=== PATIENT | female | born 1980 | race African-American/Black ===

== ENCOUNTER 2016-11-23 15:33 | Emergency (ER) | payer OTHER ==
[~2016-11-23] VITALS: Ht 162.6 cm; Wt 118.0 kg
[2016-11-23 15:39] VITALS: Ht 162.6 cm; Wt 118.0 kg
[2016-11-23] MEDS ORDERED: KETOROLAC 30 MG INJ IV STA (18:21)
[2016-11-23] MEDS ORDERED: SOD CHLORIDE 0.9% 1,000 ML IV ONE (18:30)
[2016-11-23] MEDS ORDERED: MECLIZINE 12.5 MG TAB PO ONE (18:30)
[2016-11-23 19:10] LABS: ADD UMIC NO; UR ASCORBIC ACID NEGATIVE (NEGATIVE); UR BILIRUBIN (Dip) NEGATIVE (NEGATIVE); UR BLOOD (Dip) NEGATIVE (NEGATIVE); UR CLARITY CLEAR (CLEAR); UR COLOR YELLOW (YELLOW); UR GLUCOSE (Dip) NEGATIVE (NEGATIVE); UR KETONES (Dip) NEGATIVE (NEGATIVE); UR LEUKOCYTE ESTERASE (Dip) NEGATIVE Leu/ul (NEGATIVE); UR NITRITE (Dip) NEGATIVE (NEGATIVE); UR SPECIFIC GRAVITY (Dip) 1.019 (1.003-1.030); UR TOTAL PROTEIN (Dip) NEGATIVE (NEGATIVE); UR UROBILINOGEN (Dip) NEGATIVE (NEGATIVE)
[2016-11-23 19:13] LABS: BASOPHIL # 0.1 10^3/ul (0.0-0.1); BASOPHILS % 0.4 % (0.0-2.0); EOSINOPHILS # 0.1 10^3/ul (0.0-0.5); EOSINOPHILS % 0.7 % (0.0-7.0); HEMATOCRIT 41.2 % (37.0-47.0); LYMPHOCYTES # 3.4 10^3/ul (0.8-2.9); LYMPHOCYTES % 27.8 % (15.0-51.0); MEAN CORPUSCULAR HEMOGLOBIN 30.4 pg (29.0-33.0); MEAN CORPUSCULAR VOLUME 89.6 fl (82.0-101.0); MEAN PLATELET VOLUME 10.1 fl (7.4-10.4); MONOCYTE # 0.9 10^3/ul (0.3-0.9); MONOCYTES % 7.1 % (0.0-11.0); NEUTROPHILS % 63.7 % (39.0-77.0); PLATELET COUNT 286 10^3/UL (140-415); RED CELL DISTRIBUTION WIDTH 13.3 % (11.5-14.5); WHITE BLOOD COUNT 12.2 10^3/ul (4.8-10.8)
[2016-11-23 19:37] LABS: ALBUMIN 3.9 g/dl (3.3-4.9); ALBUMIN/GLOBULIN RATIO 0.97; BILIRUBIN,INDIRECT 0.2 mg/dl (0-1.1); BILIRUBIN,TOTAL 0.2 mg/dl (0.2-1.3); CALCIUM 9.2 mg/dl (8.4-10.2); CREATININE 0.79 mg/dl (0.44-1.00); POTASSIUM 3.7 mmol/L (3.5-5.1); TOTAL PROTEIN 7.9 g/dl (6.1-8.1)
[2016-11-23] MEDS ORDERED: IBUP-1542 PO (19:40)
[2016-11-23] MEDS ORDERED: MECL12.574 PO (19:40)
--- NOTE | 2016-11-23 19:49 | ERD ---
ER Documentation Chief Complaint Date/Time DATE: 11/23/16 TIME: 19:45 Chief Complaint HEADACHE , DIZZINESS X 2 DAYS , NO NEURO DEFICITS HPI This is a 36-year-old female that presents to the ER for a headache that is located on the back of her head is throbbing in quality it has been constant. Patient has not taken anything for her headache. Patient denies any head trauma. Patient also complaining of a spinning sensation which is worse whenever she moves her head. Patient's symptoms have been going on for the last 35 hours. Patient denies any dental pain she denies any recent cough or cold symptoms. She does admit to some nausea however denies vomiting. Patient denies any vision loss or vision changes. She denies any upper or lower extremity weaknesses. ROS 12 point review of systems was done, all negative except per HPI. Medications Home Meds Active Scripts Meclizine Hcl* (Antivert*) 12.5 Mg Tab, 12.5 MG PO Q6H Y for DIZZINESS, #20 TAB Prov:RENATA SHRESTHA 11/23/16 Ibuprofen* (Motrin*) 600 Mg Tab, 600 MG PO Q6, #30 TAB Prov:RENATA SHRESTHA 11/23/16 PMhx/Soc History of Surgery: Yes (RIGHT ACL SX AND REPAIR X 3. ) Anesthesia Reaction: No Hx Neurological Disorder: No Hx Respiratory Disorders: No Hx Cardiac Disorders: No Hx Psychiatric Problems: No Hx Miscellaneous Medical Probl: No Hx Alcohol Use: Yes (RARELY) Hx Substance Use: No Hx Tobacco Use: No Smoking Status: Never smoker Physical Exam Vitals Vital Signs Date Time Temp Pulse Resp B/P Pulse Ox O2 Delivery O2 Flow Rate FiO2 11/23/16 18:54 79 18 123/67 100 Room Air 73 124/81 75 129/84 11/23/16 15:39 98.4 80 18 132/89 98 Physical Exam GENERAL: The patient is well developed and appropriate for usual state of health , in no apparent distress. HEENT: Atraumatic. Conjunctivae are pink. Pupils equal, round, and reactive to light. Extraocular muscles are grossly intact. No nystagmus. Bilateral tympanic membranes are clear with no evidence of erythema, bulging or perforation. NECK: C-spine is soft and supple. There is no cervical lymphadenopathy. CHEST: Clear to auscultation bilaterally. There are no rales, wheezes or rhonchi. HEART: Regular rate and rhythm. No murmurs, clicks, rubs or gallops. EXTREMITIES: Equal pulses bilaterally. There is no peripheral clubbing, cyanosis or edema. No focal swelling or erythema. Full range of motion. Grossly neurovascularly intact. NEURO: Alert and oriented. Cranial nerves II through XII are intact. Motor strength in all 4 extremities with 5/5 strength. Sensation grossly intact. Normal speech and gait. Negative Rhomberg. +2 DTRs. SKIN: There is no apparent rash or petechia. The skin is warm and dry. Result Diagram: 11/23/16185511/23/161855 Results 24 hrs Laboratory Tests Test 11/23/16 18:39 11/23/16 18:56 Urine Color YELLOW Urine Clarity CLEAR Urine pH 5.0 Urine Specific [place] 1.019 Urine Ketones NEGATIVEmg/dL Urine Nitrite NEGATIVEmg/dL Urine Bilirubin NEGATIVEmg/dL Urine Urobilinogen NEGATIVEmg/dL Urine Leukocyte Esterase NEGATIVELeu/ul Urine Hemoglobin NEGATIVEmg/dL Urine Glucose NEGATIVEmg/dL Urine Total Protein NEGATIVEmg/dl White Blood Count 12.210^3/ul Red Blood Count 4.6010^6/ul Hemoglobin 14.0g/dl Hematocrit 41.2% Mean Corpuscular Volume 89.6fl Mean Corpuscular Hemoglobin 30.4pg Mean Corpuscular Hemoglobin Concent 34.0g/dl Red Cell Distribution Width 13.3% Platelet Count 72224^3/UL Mean Platelet Volume 10.1fl Neutrophils % 63.7% Lymphocytes % 27.8% Monocytes % 7.1% Eosinophils % 0.7% Basophils % 0.4% Nucleated Red Blood Cells % 0.0/100WBC Neutrophils # (Manual) 7.810^3/ul Lymphocytes # 3.410^3/ul Monocytes # 0.910^3/ul Eosinophils # 0.110^3/ul Basophils # 0.110^3/ul Nucleated Red Blood Cells # 0.010^3/ul Sodium Level 143mmol/L Potassium Level 3.7mmol/L Chloride Level 106mmol/L Carbon Dioxide Level 29mmol/L Anion Gap 12 Blood Urea Nitrogen 11mg/dl Creatinine 0.79mg/dl Glucose Level 104mg/dl Calcium Level 9.2mg/dl Total Bilirubin 0.2mg/dl Direct Bilirubin 0.00mg/dl Indirect Bilirubin 0.2mg/dl Aspartate Amino Transf (AST/SGOT) 19IU/L Alanine Aminotransferase (ALT/SGPT) 28IU/L Alkaline Phosphatase 64IU/L Total Protein 7.9g/dl Albumin 3.9g/dl Globulin 4.00g/dl Albumin/Globulin Ratio 0.97 Current Medications Medications (Trade) Dose Ordered Sig/Marisol Route PRN Reason Start Time Stop Time Status Last Admin Dose Admin Meclizine HCl 25 mg 25 mg ONCE ONCE PO 11/23/16 18:30 11/23/16 18:31 DC 11/23/16 18:59 Sodium Chloride (NS) 1,000 ml @ 1,000 mls/hr Q1H ONCE IV 11/23/16 18:30 11/23/16 19:29 DC 11/23/16 19:00 Ketorolac Tromethamine (Toradol) 30 mg ONCE STAT IV 11/23/16 18:21 11/23/16 18:24 DC 11/23/16 18:59 Procedures/MDM EKG was taken at [address] elevation no T-wave inversion this EKG was signed by Dr. Hassan. Differential Diagnosis includes but is not limited to; Benign positional vertigo , labyrinthitis, vertigo, MS, acoustic neuroma, arrhythmia, anemia, hypoglycemia , infection, dehydration. This is likely benign positional vertigo as patient' s dizziness is described as a spinning sensation and worse with movement. Suspicion for acute intracranial pathology is low as patient is neurologically intact with no focal neurological deficits. Reports the patient had a I do not believe that CT imaging is needed at this time as her neurological examination is completely benign. Patient is afebrile and extremely well-appearing suspicion for infectious etiology such as encephalitis or meningitis is low. Patient felt significantly better with treatment in the ER she will be sent home with ibuprofen and with meclizine. Patient is to follow-up with her primary care doctor within 1-2 days return to ER sooner if symptoms worsen. My medical decision making was shared with the patient she understands and agrees with plan. Departure Diagnosis: Primary Impression: Dizziness Additional Impression: Headache Condition: Stable Patient Instructions: Dizziness (Vertigo) and Balance Problems: Ensuring Your Safety Additional Instructions: Call your primary care doctor TOMORROW for an appointment during the next 1-2 days.See the doctor sooner or return here if your condition worsens before your appointment time. RENATA SHRESTHA Nov 23, 2016 19:49
[2016-11-23 19:56] VITALS: BP 118/65; PULSE 69; RESP 20; TEMP 98.1
[2016-11-24] MEDS ORDERED: SOD CHLORIDE 0.9% 100 ML ONE (12:08)
[2016-11-24] MEDS ORDERED: IODIXANOL LOCM 50 ML BTL ONE (12:08)
[2016-11-24] MEDS ORDERED: IODIXANOL LOCM 100 ML BTL ONE (12:08)
== END 2016-11-23 20:15 | disposition home or self-care (01) ==
LOC: FTE 15:33
DX: R42 Dizziness and giddiness (principal)
CPT/HCPCS: 80053; 81003; 85025; 93005; 96374; J1885; J7030; Z7502; Z7610; Q9967

== ENCOUNTER 2018-06-14 11:31 | Inpatient (IN) | payer MEDICAID, OTHER ==
[~2018-06-14] VITALS: Ht 162.6 cm; Wt 119.5 kg
[~2018-06-14 11:31] MED LIST: IBUP-1542 PO; MECL12.574 PO
[2018-06-14] MEDS ORDERED: MAGNESIUM SULFATE 20 GM/500 ML 500 ML IV SCH (11:38)
[2018-06-14] MEDS ORDERED: BETAMET NA PHOS/AC(6 MG/ML) 2 ML INJ SYG IM SCH (12:00)
[2018-06-14] MEDS ORDERED: MAGNESIUM SULFATE 4 GM/100 ML 100 ML IV ONE (12:00)
[2018-06-14] MEDS: LACTATED RINGER'S 1,000 ML IV SCH ×2 (12:01→20:54)
[2018-06-14 12:45] VITALS: BMI 99.5
[2018-06-14 12:46] VITALS: BP 119/85; PULSE 80; RESP 20
[2018-06-14] MEDS ORDERED: BUTORPHANOL 1 MG INJ IV PRN (13:30)
[2018-06-14] MEDS: BUTORPHANOL 2 MG INJ IV PRN ×2 (14:11→19:03)
[2018-06-14] MEDS ORDERED: DEXTROSE 50% 50 ML SYRINGE IV PRN ×2 (14:30)
[2018-06-14] MEDS ORDERED: GLUCOSE GEL 15 GRAM TUBE PO PRN ×2 (14:30)
[2018-06-14] MEDS ORDERED: GLUCAGON 1 MG INJ IM PRN (14:30)
[2018-06-14] MEDS ORDERED: GLUCOSE GEL 15 GRAM TUBE BUCCAL PRN (14:30)
[2018-06-14] MEDS ORDERED: AMPICILLIN 2 GM/NS (PMX) 100 ML IV ONE (15:30)
[2018-06-14] MEDS ORDERED: ACETAMINOPHEN 325 MG TAB PO PRN (16:30)
--- NOTE | 2018-06-14 16:37 | CONS ---
Assessment/Plan Assessment/Plan Hospital Course (Demo Recall) Have spoken to the mother and explained her about prematurity, low birthweight, physiologic immaturity with babies of gestational diabetic moms, survival greater than 99%, long-term risk for neurodevelopmental problems in view of prematurity, respiratory distress syndrome, oxygen therapy, possible ventilatory assistance, risk for hypoglycemia, IV fluid therapy, feeding problems with necrotizing enterocolitis and slow feeding of prematurity, jaundice requiring phototherapy, apnea of prematurity and answered mother's question and address the concerns . Mom seems to understand the risks with prematurity and had appropriate questions that were answered. I spent a total of 30-35 minutes in reviewing the chart, talking to the mother, coordinating care with ancillary services and dictating the consult note. Thank you very much for allowing me to take part in the care of this patient, will follow the mom and the baby as needed . Consultation Date/Type/Reason Admit Date/Time Jun 14, 2018 at 11:33 Date of Consultation: Jun 14, 2018 Type of Consult consult requested by primary jukebox operator Dr. Guo for prematurity at 33 and 5/7 weeks with labor and history of diet- controlled gestational diabetes . Reason for Consultation 37-year-old 4, 3 Mom admitted with labor with intact membranes at 33 and 5/7 weeks. Started on magnesium sulfate, antibiotics and given 1 dose of betamethasone with the second 1 to be given 24 hours from the previous one. Mom is afebrile and gives history of diet-controlled diabetes. Had care at [facility]. Date/Time of Note DATE: 06/14/18 TIME: 16:31 Hx of Present Illness labor with history of diet-controlled diabetes requiring magnesium sulfate , antibiotics and pain control with Stadol . Past Medical History Home Meds Active Scripts Meclizine Hcl* (Antivert*) 12.5 Mg Tab, 12.5 MG PO Q6H PRN for DIZZINESS, #20 TAB Prov:RENAAT SHRESTHA 11/23/16 Ibuprofen* (Motrin*) 600 Mg Tab, 600 MG PO Q6, #30 TAB Prov:RENATA SHRESTHA C 11/23/16 Medications Current Medications Lactated Ringer's 1,000 ml @ 125 mls/hr Q8H IV Last administered on 06/14/18at 12:01; Admin Dose 125 MLS/HR; Start 06/14/18 at 11:38 Magnesium Sulfate 500 ml @ 50 mls/hr Q10H IV Last administered on 06/14/18at 12:41; Admin Dose 50 MLS/HR; Start 06/14/18 at 11:38 Betamethasone Acet/Betameth SodPhos (Celestone Soluspan) 12 mg Q24H IM Last administered on 06/14/18at 12:18; Admin Dose 12 MG; Start 06/14/18 at 12:00; Stop 06/15/18 at 12:01 Butorphanol Tartrate (Stadol) 1 mg Q2H PRN IV .PAIN; Start 06/14/18 at 13:30 Butorphanol Tartrate (Stadol) 2 mg Q2H PRN IV .PAIN Last administered on 06/14/18at 14:11; Admin Dose 2 MG; Start 06/14/18 at 13:30 Diagnostic Test (Pha) (Accu-Chek) 1 ea FBSPP XX ; Start 06/14/18 at 19:35 Miscellaneous Information 1 ea NOTE XX ; Start 06/14/18 at 14:30 Glucose (Glutose) 15 gm Q15M PRN PO DECREASED GLUCOSE; Start 06/14/18 at 14:30 Glucose (Glutose) 22.5 gm Q15M PRN PO DECREASED GLUCOSE; Start 06/14/18 at 14:30 Dextrose (D50w Syringe) 25 ml Q15M PRN IV DECREASED GLUCOSE; Start 06/14/18 at 14:30 Dextrose (D50w Syringe) 50 ml Q15M PRN IV DECREASED GLUCOSE; Start 06/14/18 at 14:30 Glucagon (Glucagen) 1 mg Q15M PRN IM DECREASED GLUCOSE; Start 06/14/18 at 14:30 Glucose (Glutose) 15 gm Q15M PRN BUCCAL DECREASED GLUCOSE; Start 06/14/18 at 14:30 Ampicillin 50 ml @ 100 mls/hr Q4H IV ; Start 06/14/18 at 19:30 Acetaminophen (Tylenol Tab) 650 mg Q4H PRN PO .PAIN OR TEMP; Start 06/14/18 at 16:30 Allergies: Coded Allergies: Latex, Natural Rubber (Verified Allergy, Unknown, 06/14/18) swelling Uncoded Allergies: shellfish (Allergy, Mild, 06/14/18) Social History Smoking Status: Never smoker Exam/Review of Systems Exam Vitals Vital Signs Date Temp Pulse Resp B/P (MAP) Pulse Ox O2 O2 Flow FiO2 Time Delivery Rate 06/14/18 98.3 80 20 119/85 98 Room Air 12:46 (96) Results Result Diagram: 06/14/18 1145 06/14/18 1145 Results 24hrs Laboratory Tests Test 06/14/18 11:45 06/14/18 13:49 06/14/18 16:09 White Blood Count 14.1 H Red Blood Count 3.88 L Hemoglobin 11.6 L Hematocrit 33.8 L Mean Corpuscular Volume 87.1 Mean Corpuscular Hemoglobin 29.9 Mean Corpuscular Hemoglobin Concent 34.3 Red Cell Distribution Width 13.5 Platelet Count 262 Mean Platelet Volume 11.8 H Immature Granulocytes % 0.600 H Neutrophils % 71.6 Lymphocytes % 20.1 Monocytes % 7.2 Eosinophils % 0.1 Basophils % 0.4 Nucleated Red Blood Cells % 0.0 Immature Granulocytes # 0.090 H Neutrophils # 10.1 H Lymphocytes # 2.8 Monocytes # 1.0 H Eosinophils # 0.0 Basophils # 0.1 Nucleated Red Blood Cells # 0.0 Prothrombin Time 11.8 L Prothrombin Time Ratio 0.9 INR International Normalized Ratio 0.86 Activated Partial Thromboplast Time 30.0 Sodium Level 137 Potassium Level 4.0 Chloride Level 109 Carbon Dioxide Level 19 L Anion Gap 9 Blood Urea Nitrogen 3 L Creatinine 0.53 Est Glomerular Filtrat Rate mL/min > 60 Glucose Level 75 Calcium Level 9.1 Total Bilirubin 0.3 Direct Bilirubin 0.00 Indirect Bilirubin 0.3 Aspartate Amino Transf (AST/SGOT) 15 Alanine Aminotransferase (ALT/SGPT) 12 L Alkaline Phosphatase 136 H Total Protein 6.3 Albumin 2.9 L Globulin 3.40 H Albumin/Globulin Ratio 0.85 Bedside Glucose 68 L Urine Color YELLOW Urine Clarity CLEAR Urine pH 6.0 Urine Specific [place] 1.012 Urine Ketones 2+ H Urine Nitrite NEGATIVE Urine Bilirubin NEGATIVE Urine Urobilinogen NEGATIVE Urine Leukocyte Esterase 1+ H Urine Microscopic RBC 70 H Urine Microscopic WBC 35 H Urine Squamous Epithelial Cells FEW Urine Bacteria FEW A Urine Hemoglobin 3+ H Urine Glucose NEGATIVE Urine Total Protein NEGATIVE Medications Medication Current Medications Lactated Ringer's 1,000 ml @ 125 mls/hr Q8H IV Last administered on 06/14/18at 12:01; Admin Dose 125 MLS/HR; Start 06/14/18 at 11:38 Magnesium Sulfate 500 ml @ 50 mls/hr Q10H IV Last administered on 06/14/18at 12:41; Admin Dose 50 MLS/HR; Start 06/14/18 at 11:38 Betamethasone Acet/Betameth SodPhos (Celestone Soluspan) 12 mg Q24H IM Last administered on 06/14/18at 12:18; Admin Dose 12 MG; Start 06/14/18 at 12:00; Stop 06/15/18 at 12:01 Butorphanol Tartrate (Stadol) 1 mg Q2H PRN IV .PAIN; Start 06/14/18 at 13:30 Butorphanol Tartrate (Stadol) 2 mg Q2H PRN IV .PAIN Last administered on 06/14/18at 14:11; Admin Dose 2 MG; Start 06/14/18 at 13:30 Diagnostic Test (Pha) (Accu-Chek) 1 ea FBSPP XX ; Start 06/14/18 at 19:35 Miscellaneous Information 1 ea NOTE XX ; Start 06/14/18 at 14:30 Glucose (Glutose) 15 gm Q15M PRN PO DECREASED GLUCOSE; Start 06/14/18 at 14:30 Glucose (Glutose) 22.5 gm Q15M PRN PO DECREASED GLUCOSE; Start 06/14/18 at 14:30 Dextrose (D50w Syringe) 25 ml Q15M PRN IV DECREASED GLUCOSE; Start 06/14/18 at 14:30 Dextrose (D50w Syringe) 50 ml Q15M PRN IV DECREASED GLUCOSE; Start 06/14/18 at 14:30 Glucagon (Glucagen) 1 mg Q15M PRN IM DECREASED GLUCOSE; Start 06/14/18 at 14:30 Glucose (Glutose) 15 gm Q15M PRN BUCCAL DECREASED GLUCOSE; Start 06/14/18 at 14:30 Ampicillin 50 ml @ 100 mls/hr Q4H IV ; Start 06/14/18 at 19:30 Acetaminophen (Tylenol Tab) 650 mg Q4H PRN PO .PAIN OR TEMP; Start 06/14/18 at 16:30 ASHLEY LOCKE MD Jun 14, 2018 16:37
--- NOTE | 2018-06-14 16:49 | CONS ---
DATE OF ADMISSION: 06/14/2018 DATE OF CONSULTATION: I just received a note for the consult on this patient. She is with intrauterine at 33 wee ks and 5 days, , with gestational diabetes, diet controlled. She is in labor. Vaginal exam is 3 cm dilated, 100% effaced with a bulging bag, presentation is vertex. JOSH of 9.4. Estimated weight is 2318. She currently has been placed on magnesium sulfate, given betamethasone and she is o n antibiotics for GBS prophylaxis. I do agree with the management, only if the patient is n.p.o., then glucose values should be checked every 4 hours and sliding scale if necessary. Sliding scale coverage premeal values; therefore in ca se she does eat, then she needs to be checked for fasting pre and after meals. If she does eat, then insulin sliding scale for antepartum and intrapartum should be used. If she is not going to eat and she is n.p.o., then regular sliding scale. Please do consult NICU if they have still not been consulted. Again for diabetic management, if n.p. o., then glucose values should be checked every 4 hours and normal sliding scale should be used with the insulin as NovoLog. If she is not n.p.o., then fasting pre and post meals should be checked and antepartum sliding scale which covers premeal should be done, in that case please do not cover the fa sting with the sliding scale. Dictated By: ZAHRA DILLARD MD ST/NTS Conf#: [id number] DID#: [id number] CC: PIETRO LEAVITT MD;*EndCC*
[2018-06-14] MEDS ORDERED: LACTATED RINGER'S 1,000 ML IV SCH (16:54)
[2018-06-14] MEDS ORDERED: ACCU-CHEK XX SCH (17:00)
[2018-06-14] MEDS: DEXTROSE 5%-LR 1,000 ML IV SCH (19:11)
[2018-06-14 19:54] VITALS: BMI 45.2
[2018-06-14 19:57] VITALS: Ht 162.6 cm; Wt 119.5 kg
[2018-06-14] MEDS: AMPICILLIN 1 GM/NS (PMX) 50 ML IV SCH (20:06)
--- NOTE | 2018-06-14 20:14 | HP ---
Date/Time of Note Date/Time of Note DATE: 06/14/18 TIME: 20:06 OB - History Hx of Present Free Text/Dictation 37 YO EAB 2 SAB 1 with IUP at 33.5 weeks with GDM diet control. she reports to L&D with labor. she was 3 cm 100% on arrival and she is 4 cm 100% now.she reports significant pain. she was treated with Ampicillin, Betamethasone and Magnesium Sulfate. Care: Good Care Ultrasounds: Normal mid trimester US Obstetrical Complications: Gestational Diabetes Medical Complications: None Past Family/Social History * Past Medical, Surgical, Family and Obstetric Histories reviewed from chart. OB Admission Exam Vital Signs Vital Signs Vital Signs Date Temp Pulse Resp B/P (MAP) Pulse Ox O2 O2 Flow FiO2 Time Delivery Rate 06/14/18 98.2 17:22 06/14/18 80 20 119/85 98 Room Air 12:46 (96) Physical Exam HEENT: WNL Heart: Rhythm Normal Lungs: Clear, Equal Abdomen: WNL Extremities: Normal Reflexes: Normal Cervical Dilatation: 4cm Effacement: 100% Station: -2 Last 72 hourBlood Glucose Bedside Glucose - 72 Hours Test 06/14/18 13:49 06/14/18 18:05 Bedside Glucose 68 mg/dL (70-220) L 89 mg/dL (70-220) Last 72 hours Lab Results CBC & BMP 06/14/18 11:45 Liver Function Test 06/14/18 11:45 Alanine Aminotransferase (ALT/SGPT) 12 L Albumin 2.9 L Alkaline Phosphatase 136 H Aspartate Amino Transf (AST/SGOT) 15 Direct Bilirubin 0.00 Total Protein 6.3 Magnesium Level Test 06/14/18 18:15 Magnesium Level 4.9 H OB Assessment/Plan Reason for admission: labor Other plan: steroid, 2nd dose in 12 hour interval from first dose Abx Magnesium sulfate now, but we will stop magnesium sulfate if any further progress in labor. PIETRO LEAVITT MD Jun 14, 2018 20:14
--- NOTE | 2018-06-14 20:23 | PREAC ---
Date/Time of Note Date/Time of Note DATE: 06/14/18 TIME: 20:23 Anesthesia Eval and Record Evaluation Time Pre-Procedure Interview DATE: 06/14/18 TIME: 20:23 Age 37 Sex female NPO: 8 hrs Preoperative diagnosis labor pain Planned procedure labor epidural Past Medical History Past Medical History: None Surgery & Anesthesia Issues No known issue Meds Anticoagulation: No Beta Beverley within 24 hr: No Reason Beta Beverley not given: Pt. not on B-Beverley Active Scripts Meclizine Hcl* (Antivert*) 12.5 Mg Tab, 12.5 MG PO Q6H PRN for DIZZINESS, #20 TAB Prov:HENRIETTAGÓMEZRENATA C 11/23/16 Ibuprofen* (Motrin*) 600 Mg Tab, 600 MG PO Q6, #30 TAB Prov:RENATA SHRESTHA 11/23/16 Current Medications Lactated Ringer's 1,000 ml @ 125 mls/hr Q8H IV Last administered on 06/14/18at 12:01; Admin Dose 125 MLS/HR; Start 06/14/18 at 11:38 Magnesium Sulfate 500 ml @ 50 mls/hr Q10H IV Last administered on 06/14/18at 12:41; Admin Dose 50 MLS/HR; Start 06/14/18 at 11:38 Betamethasone Acet/Betameth SodPhos (Celestone Soluspan) 12 mg Q24H IM Last administered on 06/14/18at 12:18; Admin Dose 12 MG; Start 06/14/18 at 12:00; Stop 06/15/18 at 12:01 Butorphanol Tartrate (Stadol) 1 mg Q2H PRN IV .PAIN; Start 06/14/18 at 13:30 Butorphanol Tartrate (Stadol) 2 mg Q2H PRN IV .PAIN Last administered on 06/14/18at 19:03; Admin Dose 2 MG; Start 06/14/18 at 13:30 Diagnostic Test (Pha) (Accu-Chek) 1 ea FBSPP XX ; Start 06/14/18 at 19:35 Miscellaneous Information 1 ea NOTE XX ; Start 06/14/18 at 14:30 Glucose (Glutose) 15 gm Q15M PRN PO DECREASED GLUCOSE; Start 06/14/18 at 14:30 Glucose (Glutose) 22.5 gm Q15M PRN PO DECREASED GLUCOSE; Start 06/14/18 at 14:30 Dextrose (D50w Syringe) 25 ml Q15M PRN IV DECREASED GLUCOSE; Start 06/14/18 at 14:30 Dextrose (D50w Syringe) 50 ml Q15M PRN IV DECREASED GLUCOSE; Start 06/14/18 at 14:30 Glucagon (Glucagen) 1 mg Q15M PRN IM DECREASED GLUCOSE; Start 06/14/18 at 14:30 Glucose (Glutose) 15 gm Q15M PRN BUCCAL DECREASED GLUCOSE; Start 06/14/18 at 14:30 Ampicillin 50 ml @ 100 mls/hr Q4H IV Last administered on 06/14/18at 20:06; Admin Dose 100 MLS/HR; Start 06/14/18 at 19:30 Acetaminophen (Tylenol Tab) 650 mg Q4H PRN PO .PAIN OR TEMP Last administered on 06/14/18at 16:37; Admin Dose 650 MG; Start 06/14/18 at 16:30 Lactated Ringer's 1,000 ml @ 125 mls/hr Q8H IV ; Start 06/14/18 at 16:54 Dextrose/Lactated Ringer's 1,000 ml @ 125 mls/hr Q8H IV Last administered on 06/14/18at 19:11; Admin Dose 125 MLS/HR; Start 06/14/18 at 16:54 Diagnostic Test (Pha) (Accu-Chek) 1 ea Q4 XX ; Start 06/14/18 at 17:00 Meds reviewed: Yes Allergies Coded Allergies: Latex, Natural Rubber (Verified Allergy, Unknown, 06/14/18) swelling Uncoded Allergies: shellfish (Allergy, Mild, 06/14/18) Allergies Reviewed: Yes Labs/Studies Labs Reviewed: Reviewed by anesthesiologist Result Diagram: 06/14/18 1145 06/14/18 1145 Laboratory Tests 06/14/18 11:45 Blood Bank Test 06/14/18 11:45 Blood Type B POSITIVE Rh Immune Globulin Candidate NO test: Positive Pre-procedure Exam Last vitals Vital Signs Date Temp Pulse Resp B/P (MAP) Pulse Ox O2 O2 Flow FiO2 Time Delivery Rate 06/14/18 98.2 17:22 06/14/18 80 20 119/85 98 Room Air 12:46 (96) Airway: Adequate mouth opening, Adequate thyromental dist Mallampati: Mallampati III Teeth: Normal Lung: Normal Heart: Normal ASA Physical Status ASA physical status: 2 Emergency: None Planned Anesthetic Neuraxial: Epidural Planned Pain Management Epidural, Parenteral pain med, Other neuraxial med Pre-operative Attestations Prior to commencing anesthesia and surgery, the patient was re-evaluated, there was verification of: *The patient's identity *The results of appropriate recent lab work and preoperative vital signs *The above evaluation not changing prior to induction *Anesthetic plan, risk benefits, alternative and complications discussed with patient/family; questions answered; patient/family understands, accepts and wishes to proceed. ZACK CLEMONS MD Jun 14, 2018 20:23
[2018-06-14] MEDS ORDERED: KETOROLAC 30 MG INJ IV PRN (20:30)
[2018-06-14] MEDS ORDERED: ONDANSETRON 4 MG INJ IV PRN (20:30)
[2018-06-14] MEDS ORDERED: DIPHENHYDRAMINE 50 MG INJ IV PRN (20:30)
[2018-06-14] MEDS ORDERED: NALOXONE (0.4 MG/ML) INJ IV PRN (20:30)
[2018-06-14] MEDS ORDERED: ZOLPIDEM 5 MG TAB PO PRN (20:30)
[2018-06-14] MEDS ORDERED: HYDROmorphONE 0.5 MG/0.5 ML SYG IV PRN ×2 (20:30)
[2018-06-14] MEDS: FENTAnyl 2MCG/ML-ROPIV 0.2% 100 ML BAG EPI SCH (23:51)
[2018-06-15] MEDS ORDERED: BETAMET NA PHOS/AC(6 MG/ML) 2 ML INJ SYG IM SCH ×2 (00:11→09:00)
[2018-06-15] MEDS: AMPICILLIN 1 GM/NS (PMX) 50 ML IV SCH ×6 (00:26→20:33)
[2018-06-15] MEDS: FENTAnyl 2MCG/ML-ROPIV 0.2% 100 ML BAG EPI SCH ×3 (04:10→19:32)
[2018-06-15] MEDS: ACCU-CHEK XX SCH ×4 (06:00→19:35)
[2018-06-15] MEDS: LACTATED RINGER'S 1,000 ML IV SCH (06:30)
[2018-06-15] MEDS: DEXTROSE 5%-LR 1,000 ML IV SCH (11:30)
--- NOTE | 2018-06-15 14:11 | QN ---
Documentation Comment IUP 33.6 weeks she is comfortable with epidural, has SCD. Denies pain, LOF per vagina or vaginal bleeding NST category one AF, VSS Abdomen: soft, obese, gravid, NT Cervix: 6- 7 cm 100% BBOW bed side sono done by me: Vertex A) Labor with advanced dilation, she was very uncomfortable prior to epidural. had steroids. she is on ampicillin P) expect her to deliver soon, for now expectant management, will add Zithromax. the BBOW may not be as protective any more. is still the consider augmentation in am if OK with PIETRO Herrmann MD Jun 15, 2018 14:11
[2018-06-15] MEDS ORDERED: AZITHROMYCIN 500MG/NS (PMX) 250 ML IVPB SCH (14:30)
[2018-06-15] MEDS ORDERED: MAGNESIUM SULFATE 20 GM/500 ML 500 ML IV SCH (17:55)
[2018-06-15] MEDS ORDERED: OXYTOCIN 30 UNITS/LR 500 ML IV SCH ×3 (20:00→21:00)
[2018-06-15] MEDS ORDERED: LIDOCAINE 1% (MPF) 30 ML INJ INJ PRN (21:00)
[2018-06-15] MEDS ORDERED: MINERAL OIL LIGHT 10 ML VIAL TOP STA (21:38)
--- NOTE | 2018-06-15 22:08 | LDN ---
Date/Time of Note Date/Time of Note DATE: 06/15/18 TIME: 22:05 Delivery Summary 37 YO EAB 2 SAB 1 with IUP at 33.6 weeks with GDM diet control.s/p of viable female infant in direct OP and one loose Nuchal cord. APGARS 7 and 9. placenta delivered intact and spontaneously. perineum was intact but she had small first degree vaginal laceration which was repaired with 3-0 Vicryl. Placenta Delivered: Spontaneously Meconium: none Episiotomy: No Anesthesia type: Epidural Estimated blood loss: 300 Sponge & Needle done & correct: Yes All needle counts correct: Yes Any foreign bodies felt in the: No Delivery Information Sex Sex: female Apgars 1 Minute: 7 5 Minute: 9 Suctioning Nose & mouth suctioned at kindra: No Delee suction performed: No Umbilical Cord Umbilical cord with: 3 Vessels Cord presentations: nuchal cord Nuchal cord present X: 1 Cord Blood was obtained: Yes Mother & Baby Disposition Disposition Mom transferred to: Other () Baby to NICU: Yes PIETRO LEAVITT MD Jun 15, 2018 22:08
[2018-06-16] VITALS (19 sets, daily range): BP systolic 104–142; BP diastolic 66–82; PULSE 61–89; RESP 16–19
[2018-06-16] MEDS ORDERED: MAGNESIUM SULFATE 4 GM/100 ML 100 ML IV SCH
[2018-06-16] MEDS: MAGNESIUM SULFATE 20 GM/500 ML 500 ML IV SCH ×2 (01:07→11:50)
[2018-06-16] MEDS: LACTATED RINGER'S 1,000 ML IV* SCH ×3 (02:17→17:35)
[2018-06-16] MEDS ORDERED: DIPHENHYDRAMINE 25 MG CAP PO PRN (02:30)
[2018-06-16] MEDS ORDERED: OXYTOCIN 30 UNITS/LR 500 ML IV PRN (02:30)
[2018-06-16] MEDS ORDERED: DIBUCAINE 1% 30 GM OINT TOP PRN (02:30)
[2018-06-16] MEDS ORDERED: NA PHOSPHATE/BIPHOS 133 ML ENEMA PR PRN (02:30)
[2018-06-16] MEDS ORDERED: DIPHENHYDRAMINE 50 MG INJ IV PRN (02:30)
[2018-06-16] MEDS ORDERED: SENNA/DOCUSATE NA (8.6MG/50MG) TAB PO PRN (02:30)
[2018-06-16] MEDS ORDERED: CARBOPROST 250 MCG INJ IM PRN (02:30)
[2018-06-16] MEDS ORDERED: ONDANSETRON 4 MG TAB PO PRN (02:30)
[2018-06-16] MEDS ORDERED: MAGNESIUM HYDROXIDE 30ML CUP PO PRN (02:30)
[2018-06-16] MEDS ORDERED: ONDANSETRON 4 MG INJ IV PRN (02:30)
[2018-06-16] MEDS ORDERED: MISOPROSTOL 200 MCG TAB PR PRN (02:30)
[2018-06-16] MEDS ORDERED: HYDROCODONE/APAP (5/325) TAB PO PRN (02:30)
[2018-06-16] MEDS ORDERED: LANOLIN HPA 1 PKT TOP PRN (02:30)
[2018-06-16] MEDS: WITCH HAZEL/GLYCERIN PAD PR PRN (05:47)
[2018-06-16] MEDS: BENZOCAINE 20% 56 ML SPRAY TOP PRN (05:47)
[2018-06-16] MEDS: IBUPROFEN 600 MG TAB PO SCH ×4 (05:47→23:34)
[2018-06-16] MEDS: ACCU-CHEK XX SCH ×4 (07:30→19:05)
[2018-06-16] MEDS: SENNA/DOCUSATE NA (8.6MG/50MG) TAB PO SCH ×2 (09:02→21:02)
--- NOTE | 2018-06-16 09:10 | PAC ---
Date/Time of Note Date/Time of Note DATE: 06/16/18 TIME: 09:10 Post-Anesthesia Notes Post-Anesthesia Note Last documented vital signs Vital Signs Date Temp Pulse Resp B/P (MAP) Pulse Ox O2 O2 Flow FiO2 Time Delivery Rate 06/16/18 80 17 104/67 Room Air 07:10 (79) 06/16/18 98.2 98 02:10 Activity: WNL Respiratory function: WNL Cardiovascular function: WNL Mental status: Baseline Pain reasonably controlled: Yes Hydration appropriate: Yes Nausea/Vomiting absent: Yes ZACK CLEMONS MD Jun 16, 2018 09:10
--- NOTE | 2018-06-16 19:00 | DS ---
Date/Time of Note Date/Time of Note DATE: 06/16/18 TIME: 18:58 Obstetrical Discharge Record Final Diagnosis Final Diagnosis: delivered Other Final Diagnosis patient arrived in labor at 33.5 weeks. had steroids. progressed to 10 cm. s/p . doing well . all BPs are normal at this time Vaginal Delivery Obstetrical Delivery: Spontaneous Complications Complications: Low weight 1500-2500gms Complications Augmentation: No Induction: No Tocolytics: Magnesium Sulfate Rupture of Membranes: Yes Gestational Age at Rupture 33.5 Condition on Discharge Physical Assessment Voiding: Yes Bowel Movement: Yes Breast: Soft, non-tender, Filling Fundus: Firm Abdomen and Incision: soft, not tender Calf Tenderness: No Patient Condition: Good PIETRO LEAVITT MD Jun 16, 2018 19:00
[2018-06-16] MEDS: HYDROCODONE/APAP (5/325) TAB PO PRN (21:03)
--- NOTE | 2018-06-17 03:56 | CONS ---
DATE OF ADMISSION: 06/14/2018 DATE OF CONSULTATION: 06/15/2018 HISTORY OF PRESENT ILLNESS: The patient is with intrauterine at 33 weeks and 6-days presen manolo the day before yesterday secondary to contractions. Her cervical exam shows she is to be 3 cm di lated, 100% effaced with a bulging bag. Presentation of the fetus is vertex. She was placed on magnesium sulfate, given 2 doses of betamethasone. OBSTETRIC HISTORY: Significant for 3 previous . REVIEW OF SYSTEMS: All negative except what is mentioned above. PHYSICAL EXAMINATION: VITAL SIGNS: Stable. Physical exam deferred. heart tones reassuring. Contractions occasional contractions, variabi lity mostly. IMPRESSION: 1. Intrauterine at 33 weeks and 6 days with labor and bulging bag. She was starte d on magnesium sulfate; however, it was stopped after the second dose of betamethasone was given. 2. Gestational diabetes, diet controlled. She is currently on GBS prophylaxis. RECOMMENDATIONS: 1. I do recommend to restart magnesium sulfate, given the gestational age of the patient, to be cont inued 24 hours after the last dose of betamethasone and then stop. 2. Expectant management until she is much further progressed or she is delivering. 3. Continue with GBS prophylaxis. 4. NICU consult. Dictated By: ZAHRA PAGE/NGHIA Conf#: [id number] DID#: [id number]
[2018-06-17 05:10] VITALS: BP 111/61; PULSE 65; RESP 15
[2018-06-17] MEDS: IBUPROFEN 600 MG TAB PO SCH ×3 (05:13→17:42)
[2018-06-17 08:30] VITALS: BP 125/80; PULSE 72; RESP 17
[2018-06-17] MEDS: SENNA/DOCUSATE NA (8.6MG/50MG) TAB PO SCH (08:52)
[2018-06-17] MEDS: HYDROCODONE/APAP (5/325) TAB PO PRN (08:53)
[2018-06-17] MEDS ORDERED: DIPHTH/TET/ACEL PERTUSS (ADULT) 0.5 ML VIAL IM* ONE (09:00)
[2018-06-17] MEDS ORDERED: MEASLES,MUMPS,RUBELLA VACCINE INJ SC* ONE (09:00)
[2018-06-17] MEDS ORDERED: VARICELLA VACCINE LIVE/PF 1,350 UNIT/0.5 ML ML SC* ONE (09:00)
[2018-06-17 15:40] VITALS: BP 115/68; PULSE 70; RESP 18
[2018-06-17] MEDS: WITCH HAZEL/GLYCERIN PAD PR PRN (17:41)
[2018-06-17] MEDS: BENZOCAINE 20% 56 ML SPRAY TOP PRN (17:41)
--- NOTE | 2018-06-18 19:10 | DELSUM ---
Delivery Summary A-C Datetime Report Generated by CPN: 06/18/2018 19:09 DELIVERY PERSONNEL Surgery Nurse: Tersigni, Mary Kay MATERNAL INFORMATION Delivery Anesthesia: Epidural Medications in Delivery: LR with 30 units of pitocin Delivery QBL (ml): 348 Placenta Cultured: Yes Other Maternal Complications: labor LABOR SUMMARY EDC: 07/28/2018 00:00 No. Babies in Womb: 1 Attempted: No Labor Anesthesia: Epidural LABOR INFORMATION Reason for Induction: Not Applicable Onset of Labor: 06/14/2018 19:55 Complete Dilatation: 06/15/2018 21:11 Oxytocin: N/A Group B Beta Strep: Not Done Antibiotics # of Doses: 8 Antibiotics Time of Last Dose: 06/15/2018 20:33 Steroids Given: Full Course Reason Steroids Not Administered: Indication MEMBRANES Membranes Rupture Method: Spontaneous Rupture of Membranes: 06/15/2018 21:11 Length of Rupture (hr): 0.63 Amniotic Fluid Color: Clear Amniotic Fluid Amount: Moderate Amniotic Fluid Odor: None STAGES OF LABOR Stage 1 hr: 25 Stage 1 min: 16 Stage 2 hr: 0 Stage 2 min: 38 Stage 3 hr: 0 Stage 3 min: 6 Total Time in Labor hr: 26 Total Time in Labor min: 0 VAGINAL DELIVERY Episiotomy: None Laceration Extension: First Degree Laceration Type: Vaginal Laceration Repair: Yes Initial Vag Sponge Count: 10 Final Vag Sponge Count: 10 Initial Vag Sharps Count: 2 Final Vag Sharps Count: 2 Sponge Count Correct: Yes; Vaginal Sweep Performed Sharps Count Correct: Yes BABY A INFORMATION Infant Delivery Date/Time: 06/15/2018 21:49 Method of Delivery: Vaginal Born in Route : No : N/A Forceps: N/A Vacuum Extraction: N/A Shoulder Dystocia : N/A SHOULDER DYSTOCIA BABY A Delivery Date/Time: 06/15/2018 21:49 PRESENTATION/POSITION BABY A Presentation: Cephalic Cephalic Presentation: Vertex Vertex Position: Left Occipital Posterior Breech Presentation: N/A PLACENTA INFORMATION BABY A Placenta Delivery Time : 06/15/2018 21:55 Placenta Method of Delivery: Spontaneous Placenta Status: Delivered SCORES BABY A Heart Rate 1 min: >100 bpm Resp Effort 1 min: Slow, Irregular Reflex Irritability 1 min: Cough/Sneeze/Pulls Away Muscle Tone 1 min: Some Flexion of Extrem Color 1 min: Body [place], Extremit Blue Resuscitation Effort 1 min: Tactile Stimulation; Oxygen; PPV/NCPAP SCORE 1 MIN: 7 Heart Rate 5 min: >100 bpm Resp Effort 5 min: Good Cry Reflex Irritability 5 min: Cough/Sneeze/Pulls Away Muscle Tone 5 min: Active Motion Color 5 min: Body [place], Extremit Blue Resuscitation Effort 5 min: Tactile Stimulation; Oxygen; PPV/NCPAP SCORE 5 MIN: 9 INFORMATION BABY A Gestational Age at Delivery: 33.6 Gestational Status: - <34 Weeks Outcome : Liveborn Infant Condition : Stable Infant Sex: Female IDENTIFICATION/MEDS BABY A ID Band Number: [id number] ID Band Location: Right Leg; Left Arm Sensor Applied: No Vitamin K Given : Not Given Erythromycin Given: Not Given WEIGHT/LENGTH BABY A Birthweight (gm): 2040 Weight (lb): 4 Infant Weight (oz): 8 Length (in): 18.50 Length (cm): 46.99 CORD INFORMATION BABY A No. Cord Vessels: 3 Nuchal Cord : Around Neck x1, Loose Cord pH Baby Arterial: 7.14 Cord pH Baby Venous: 7.25 Cord Blood Taken: Yes Suction: Mouth; Nose; Pharynx ASSESSMENT BABY A Complications: None Physical Findings at Delivery: Caput Succedaneum; Molding of the Head; Within Normal Limits Respirations: Grunting; Intercostal Retractions; Nasal Flaring Fifth Hand/ALS Called : Yes Care By: NICU team Transferred To: NICU
== END 2018-06-17 19:09 | disposition home or self-care (01) | DRG 805 ==
LOC: L-D 11:31 → OBT 11:31 → L-D 11:33 → PP1 06-16 01:56
PROVIDERS: ADMIT Specialist; ATTEND Specialist
PROC: 10E0XZZ Delivery of Products of Conception, External Approach (ICD-10-PCS; principal; 2018-06-15)
PROC: 0HQ9XZZ Repair Perineum Skin, External Approach (ICD-10-PCS; 2018-06-15)
DX: O24.420 Gestational diabetes mellitus in childbirth, diet controlled (principal); O60.14X0 Preterm labor third trimester with preterm delivery third trimester, not applicable or unspecified; Z37.0 Single live birth; O69.81X0 Labor and delivery complicated by cord around neck, without compression, not applicable or unspecified; O70.0 First degree perineal laceration during delivery; Z3A.33 33 weeks gestation of pregnancy
CPT/HCPCS: 36415; 36600; 62319; 76815; 76817; 76818; 80053; 80307; 81001; 82803; 82962; 83735; 84560; 85025; 85610; 85730; 86592; 86900; 86901; 87086; 88307; 90716; 99464; G0463; J0290; J0456; J0595; J0702; J1885; J2590; J3010; J3475; J7120; J7121

== ENCOUNTER 2018-06-19 02:13 | Inpatient (IN) | payer MEDICAID ==
[~2018-06-19] VITALS: Ht 165.1 cm; Wt 119.6 kg
[2018-06-19] VITALS (9 sets, daily range): BP systolic 98–126; BP diastolic 60–71; PULSE 56–99; RESP 18–21; Ht 165.1 cm; Wt 119.6 kg
[~2018-06-19 02:13] MED LIST changes: -IBUP-1542 PO
--- NOTE | 2018-06-19 02:50 | ERD ---
ER Documentation Chief Complaint Chief Complaint SOB, SWELLING OF BILAT LOWER EXTREMITIES. 3 DAYS POST HPI 37-year-old woman complains of increasing shortness of breath, dyspnea on exertion, orthopnea, paroxysmal nocturnal dyspnea with severe bilateral leg swelling times 4 days beginning shortly after giving . She did experience gestational hypertension about 2 days after giving and required IV magnesium therapy and states shortly after all of her pulmonary symptoms got worse and her legs became very swollen. She denies chest pain, no cough, no fevers or chills, no vomiting or diarrhea. Her baby was born premature at 33 weeks gestational age. ROS All systems reviewed and are negative except as per history of present illness. Medications Home Meds Active Scripts Meclizine Hcl* (Antivert*) 12.5 Mg Tab, 12.5 MG PO Q6H PRN for DIZZINESS, #20 T AB Prov:RENATA SHRESTHA 11/23/16 Discontinued Scripts Ibuprofen* (Motrin*) 600 Mg Tab, 600 MG PO Q6, #30 TAB Prov:RENATA SHRESTHA 11/23/16 Allergies Allergies: Coded Allergies: Latex, Natural Rubber (Verified Allergy, Unknown, 06/14/18) swelling Uncoded Allergies: shellfish (Allergy, Mild, 06/14/18) PMhx/Soc None History of Surgery: Yes (RIGHT ACL SX AND REPAIR X 3. ) Anesthesia Reaction: No Hx Neurological Disorder: No Hx Respiratory Disorders: No Hx Cardiac Disorders: No Hx Psychiatric Problems: No Hx Miscellaneous Medical Probl: No Hx Alcohol Use: Yes (RARELY) Hx Substance Use: No Hx Tobacco Use: No Smoking Status: Never smoker FmHx Family History: No diabetes Physical Exam Vitals Vital Signs Date Temp Pulse Resp B/P (MAP) Pulse Ox O2 O2 Flow FiO2 Time Delivery Rate 06/19/18 59 18 115/75 100 Room Air 03:51 (88) 06/19/18 97.8 64 20 153/88 99 Room Air 02:43 (109) 06/19/18 97.8 78 20 157/87 99 02:33 (110) Physical Exam GENERAL: Well-developed, well-nourished, appears dyspneic, afebrile HEENT: Moist mucous membranes, pink conjunctiva, no cervical spine tenderness or step-off deformities, no goiter, no jaundice or icterus, extraocular movements intact without pain. No submandibular induration, and no pharyngeal erythema NEURO: Alert and oriented 3, cranial nerves II through XII intact bilaterally, pupils equal round reactive to light, no focal deficits or facial asymmetry, sensation intact distally Strength 5/5 in upper and lower extremities bilaterally CARDIAC: Regular rate and rhythm, no murmurs rubs or gallops LUNGS: Poor breath sounds bilaterally with crackles at the bases, no wheezing or stridor SKIN: Warm and dry to touch, no abrasions, contusions, or hematomas, no lacerations, no ecchymosis, no target lesions, and without ulcers EXTREMITIES: No clubbing cyanosis, 3+ pitting edema in the lower extremities bilaterally, calves are bilaterally symmetrical, no Homans sign, no popliteal cord sign. Distal pulses equal and bilateral Result Diagram: 06/19/18 0300 06/19/18 030 Results 24 hrs Laboratory Tests Test 06/19/18 03:00 06/19/18 03:27 White Blood Count 11.6 10^3/ul Red Blood Count 3.68 10^6/ul Hemoglobin 10.9 g/dl Hematocrit 32.4 % Mean Corpuscular Volume 88.0 fl Mean Corpuscular Hemoglobin 29.6 pg Mean Corpuscular Hemoglobin Concent 33.6 g/dl Red Cell Distribution Width 13.5 % Platelet Count 274 10^3/UL Mean Platelet Volume 10.6 fl Immature Granulocytes % 1.000 % Neutrophils % 57.6 % Lymphocytes % 31.6 % Monocytes % 7.1 % Eosinophils % 2.3 % Basophils % 0.4 % Nucleated Red Blood Cells % 0.0 /100WBC Immature Granulocytes # 0.120 10^3/ul Neutrophils # 6.7 10^3/ul Lymphocytes # 3.7 10^3/ul Monocytes # 0.8 10^3/ul Eosinophils # 0.3 10^3/ul Basophils # 0.1 10^3/ul Nucleated Red Blood Cells # 0.0 10^3/ul Sodium Level 139 mmol/L Potassium Level 4.2 mmol/L Chloride Level 108 mmol/L Carbon Dioxide Level 23 mmol/L Anion Gap 8 Blood Urea Nitrogen 9 mg/dl Creatinine 0.47 mg/dl Est Glomerular Filtrat Rate mL/min > 60 mL/min Glucose Level 91 mg/dl Calcium Level 9.3 mg/dl Total Bilirubin 0.2 mg/dl Direct Bilirubin 0.00 mg/dl Indirect Bilirubin 0.2 mg/dl Aspartate Amino Transf (AST/SGOT) 25 IU/L Alanine Aminotransferase (ALT/SGPT) 19 IU/L Alkaline Phosphatase 94 IU/L Troponin I < 0.012 ng/ml B-Type Natriuretic Peptide 351 PG/ML Total Protein 6.5 g/dl Albumin 3.1 g/dl Globulin 3.40 g/dl Albumin/Globulin Ratio 0.91 Lipase 225 U/L Urine Color YELLOW Urine Clarity SLIGHTLY CLOUDY Urine pH 7.0 Urine Specific [place] 1.004 Urine Ketones NEGATIVE mg/dL Urine Nitrite NEGATIVE mg/dL Urine Bilirubin NEGATIVE mg/dL Urine Urobilinogen NEGATIVE mg/dL Urine Leukocyte Esterase 2+ [place]/ul Urine Microscopic RBC 42 /HPF Urine Microscopic WBC 18 /HPF Urine Squamous Epithelial Cells FEW /HPF Urine Bacteria FEW /HPF Urine Hemoglobin 3+ mg/dL Urine Glucose NEGATIVE mg/dL Urine Total Protein NEGATIVE mg/dl Current Medications Medications Dose Sig/Marisol Start Time Status Last (Trade) Ordered Route PRN Stop Time Admin Dose Reason Admin Furosemide 60 mg ONCE ONCE 06/19/18 DC 06/19/18 (Lasix) IV 03:30 03:12 06/19/18 03:31 Aspirin 162 mg ONCE ONCE 06/19/18 DC 06/19/18 (Aspirin) PO 03:30 03:12 06/19/18 03:31 Procedures/MDM IV line was established patient was placed on director clinical operations rhythm strip revealed a sinus rhythm at about 60 bpm with upright P and T waves. Patient was afebrile EKG performed, read by me revealed a normal sinus rhythm at 63 bpm, normal axis, narrow QRS complex, no concerning ST elevations or depressions noted 1 view chest x-ray performed, read by me revealed cardiomegaly and mild pulmonary vascular congestion, no acute infiltrates, no pneumothorax. I administered aspirin 162 mg p.o. for cardioprotective measures and Lasix 60 mg IV x1 CBC was unremarkable, electrolytes normal, liver function tests normal, troponin negative, BNP in the 300s. Urinalysis reveals infection I ordered ceftriaxone 1 g IV. I suspect cardiomyopathy and will admit the patient to telemetry setting for continued medical management, cardiology consultation, and continue diuresis. Departure Diagnosis: Primary Impression: cardiomyopathy Additional Impressions: Shortness of breath Peripheral edema Acute UTI Condition: JAEL Wild MD Jun 19, 2018 02:50
[2018-06-19] MEDS ORDERED: ASPIRIN 81 MG TAB PO ONE (03:30)
[2018-06-19] MEDS ORDERED: FUROSEMIDE 40 MG INJ IV ONE (03:30)
[2018-06-19] MEDS ORDERED: CEFTRIAXONE 1 GM/50 ML (PMX) 50 ML IVPB ONE ×2 (04:30)
[2018-06-19] MEDS ORDERED: ONDANSETRON 4 MG INJ IV PRN (05:00)
[2018-06-19] MEDS ORDERED: ALBUTEROL/IPRATROPIUM (NEB) 3 ML AMP HHN PRN (05:00)
[2018-06-19] MEDS ORDERED: ACETAMINOPHEN 325 MG TAB PO PRN (05:00)
[2018-06-19] MEDS ORDERED: NACL 0.9% 3 ML SYG IV SCH (05:00)
--- NOTE | 2018-06-19 05:25 | HP ---
Date/Time of Note Date/Time of Note DATE: 06/19/18 TIME: 05:21 Assessment/Plan VTE Prophylaxis Pharmacological prophylaxis: heparin Lines/Catheters IV Catheter Type (from Nrs): Peripheral IV Assessment/Plan Assessment/Plan 37-year-old female who is 3 days ( 33.5 weeks) here with bilateral lower extremity swelling and shortness of breath, concerning for cardiomyopathy PLAN -Obtain chest x-ray -Lasix -2D echo -Cardiology consult -A1c, fasting lipid and TSH in a.m. Result Diagram: 06/19/18 0300 06/19/18 0300 Results 24hrs Laboratory Tests Test 06/19/18 03:00 06/19/18 03:27 White Blood Count 11.6 #H Red Blood Count 3.68 L Hemoglobin 10.9 L Hematocrit 32.4 L Mean Corpuscular Volume 88.0 Mean Corpuscular Hemoglobin 29.6 Mean Corpuscular Hemoglobin Concent 33.6 Red Cell Distribution Width 13.5 Platelet Count 274 Mean Platelet Volume 10.6 H Immature Granulocytes % 1.000 H Neutrophils % 57.6 Lymphocytes % 31.6 Monocytes % 7.1 Eosinophils % 2.3 Basophils % 0.4 Nucleated Red Blood Cells % 0.0 Immature Granulocytes # 0.120 H Neutrophils # 6.7 Lymphocytes # 3.7 H Monocytes # 0.8 Eosinophils # 0.3 Basophils # 0.1 Nucleated Red Blood Cells # 0.0 Sodium Level 139 Potassium Level 4.2 Chloride Level 108 Carbon Dioxide Level 23 Anion Gap 8 Blood Urea Nitrogen 9 Creatinine 0.47 Est Glomerular Filtrat Rate mL/min > 60 Glucose Level 91 Calcium Level 9.3 Total Bilirubin 0.2 Direct Bilirubin 0.00 Indirect Bilirubin 0.2 Aspartate Amino Transf (AST/SGOT) 25 Alanine Aminotransferase (ALT/SGPT) 19 Alkaline Phosphatase 94 Troponin I < 0.012 B-Type Natriuretic Peptide 351 H Total Protein 6.5 Albumin 3.1 L Globulin 3.40 H Albumin/Globulin Ratio 0.91 Lipase 225 Urine Color YELLOW Urine Clarity SLIGHTLY CLOUDY A Urine pH 7.0 Urine Specific [place] 1.004 Urine Ketones NEGATIVE Urine Nitrite NEGATIVE Urine Bilirubin NEGATIVE Urine Urobilinogen NEGATIVE Urine Leukocyte Esterase 2+ H Urine Microscopic RBC 42 H Urine Microscopic WBC 18 H Urine Squamous Epithelial Cells FEW Urine Bacteria FEW A Urine Hemoglobin 3+ H Urine Glucose NEGATIVE Urine Total Protein NEGATIVE HPI/ROS Admit Date/Time Admit Date/Time Jun 19, 2018 at 03:21 Hx of Present Illness This is a 37-year-old female who is 3 days ( 33.5 weeks) presented to ER complaining of bilateral lower extremity swelling and shortness of breath. Symptom has been progressively getting worse. She denies chest pain. Reported gestational hypertension. When presented to ER, blood pressure was 157/87. UA consistent with UTI. BNP 351. PMH/Family/Social Past Medical History Medical History: other (See HPI) Medications Current Medications IV Flush (NS 3 ml) 3 ml PER PROTOCOL IV ; Start 06/19/18 at 05:00 Ondansetron HCl (Zofran Inj) 4 mg Q6H PRN IV NAUSEA/VOMITING; Start 06/19/18 at 05:00 Acetaminophen (Tylenol Tab) 650 mg Q6H PRN PO .PAIN 1-3 OR TEMP; Start 06/19/18 at 05:00 Heparin Sodium (Porcine) (Heparin (5000 Units/1ml)) 5,000 unit Q12 SC ; Start 06/19/18 at 09:00 Albuterol/ Ipratropium (Duoneb) 3 ml Q2H RESP THERAPY PRN HHN SHORTNESS OF BREATH; Start 06/19/18 at 05:00 Furosemide (Lasix) 20 mg DAILY IV ; Start 06/19/18 at 09:00 Ceftriaxone Sodium 50 ml @ 100 mls/hr DAILY IVPB ; Start 06/19/18 at 09:00 Lisinopril (Zestril) 10 mg DAILY PO ; Start 06/19/18 at 09:00 Coded Allergies: Latex, Natural Rubber (Verified Allergy, Unknown, 06/14/18) swelling Uncoded Allergies: shellfish (Allergy, Mild, 06/14/18) Past Surgical History Past Surgical Hx: other (See HPI) Family History Significant Family History: no pertinent family hx Social History Alcohol Use: none Smoking Status: Never smoker Drug Use: none Exam/Review of Systems Vital Signs Vitals Vital Signs Date Temp Pulse Resp B/P (MAP) Pulse Ox O2 O2 Flow FiO2 Time Delivery Rate 06/19/18 97.5 63 20 114/68 96 Room Air 04:15 (83) Exam Constitutional: other (No acute distress) Head: normocephalic, atraumatic Eyes: EOMI, PERRL Respiratory: clear to auscultation Cardiovascular: regular rate and rhythm Gastrointestinal: soft Extremities: edema LEONIDES RASHID MD Jun 19, 2018 05:25
[2018-06-19] MEDS: LISINOPRIL 10 MG TAB PO SCH (08:43)
[2018-06-19] MEDS: HEPARIN 5,000 UNIT/1 ML VIAL SC SCH ×2 (08:45→20:49)
[2018-06-19] MEDS ORDERED: FUROSEMIDE 20 MG INJ IV SCH (09:00)
[2018-06-19] MEDS: CEFTRIAXONE 1 GM/50 ML (PMX) 50 ML IVPB SCH (09:43)
--- NOTE | 2018-06-19 11:47 | PN ---
Date/Time of Note Date/Time of Note DATE: 06/19/18 TIME: 11:44 Assessment/Plan VTE Prophylaxis Risk score (from Nsg)>0 risk: 4 Pharmacological prophylaxis: heparin Lines/Catheters IV Catheter Type (from Nrsg): Saline Lock Assessment/Plan Hospital Course 1. Anasarca Follow-up with 2D echo Renal function intact with UA showing no proteinuria Increase Lasix to 40 mg IV twice daily patient has persistent lower external edema, shortness of breath has improved Cardiology consultation if echo shows abnormalities 2. UTI Rocephin IV 3. Recent gestation Patient is 3 days Prophylaxis: Heparin Result Diagram: 06/19/18 0300 06/19/18 0300 Results 24hrs Laboratory Tests Test 06/19/18 03:00 06/19/18 03:27 06/19/18 04:52 White Blood Count 11.6 #H Red Blood Count 3.68 L Hemoglobin 10.9 L Hematocrit 32.4 L Mean Corpuscular Volume 88.0 Mean Corpuscular Hemoglobin 29.6 Mean Corpuscular 33.6 Hemoglobin Concent Red Cell Distribution Width 13.5 Platelet Count 274 Mean Platelet Volume 10.6 H Immature Granulocytes % 1.000 H Neutrophils % 57.6 Lymphocytes % 31.6 Monocytes % 7.1 Eosinophils % 2.3 Basophils % 0.4 Nucleated Red Blood Cells % 0.0 Immature Granulocytes # 0.120 H Neutrophils # 6.7 Lymphocytes # 3.7 H Monocytes # 0.8 Eosinophils # 0.3 Basophils # 0.1 Nucleated Red Blood Cells # 0.0 Sodium Level 139 Potassium Level 4.2 Chloride Level 108 Carbon Dioxide Level 23 Anion Gap 8 Blood Urea Nitrogen 9 Creatinine 0.47 Est Glomerular Filtrat > 60 Rate mL/min Glucose Level 91 Calcium Level 9.3 Total Bilirubin 0.2 Direct Bilirubin 0.00 Indirect Bilirubin 0.2 Aspartate Amino 25 Transf (AST/SGOT) Alanine 19 Aminotransferase (ALT/SGPT) Alkaline Phosphatase 94 Troponin I < 0.012 < 0.012 B-Type Natriuretic Peptide 351 H Total Protein 6.5 Albumin 3.1 L Globulin 3.40 H Albumin/Globulin Ratio 0.91 Lipase 225 Urine Color YELLOW Urine Clarity SLIGHTLY CLOUDY A Urine pH 7.0 Urine Specific [place] 1.004 Urine Ketones NEGATIVE Urine Nitrite NEGATIVE Urine Bilirubin NEGATIVE Urine Urobilinogen NEGATIVE Urine Leukocyte Esterase 2+ H Urine Microscopic RBC 42 H Urine Microscopic WBC 18 H Urine Squamous FEW Epithelial Cells Urine Bacteria FEW A Urine Hemoglobin 3+ H Urine Glucose NEGATIVE Urine Total Protein NEGATIVE Creatine Kinase 30 Creatine Kinase Index 0.7 Creatinine Kinase MB (Mass) < 0.22 Subjective 24 Hr Interval Summary Respiratory: shortness of breath Lymphatic: lymphadema Exam/Review of Systems Exam Vitals Vital Signs Date Temp Pulse Resp B/P (MAP) Pulse Ox O2 O2 Flow FiO2 Time Delivery Rate 06/19/18 98.0 68 18 98/60 (73) 96 Room Air 11:08 Constitutional: alert, oriented Respiratory: clear to auscultation Cardiovascular: regular rate and rhythm Gastrointestinal: soft; No distended Extremities: edema Results Results 24hrs Laboratory Tests Test 06/19/18 03:00 06/19/18 03:27 06/19/18 04:52 White Blood Count 11.6 #H Red Blood Count 3.68 L Hemoglobin 10.9 L Hematocrit 32.4 L Mean Corpuscular Volume 88.0 Mean Corpuscular Hemoglobin 29.6 Mean Corpuscular 33.6 Hemoglobin Concent Red Cell Distribution Width 13.5 Platelet Count 274 Mean Platelet Volume 10.6 H Immature Granulocytes % 1.000 H Neutrophils % 57.6 Lymphocytes % 31.6 Monocytes % 7.1 Eosinophils % 2.3 Basophils % 0.4 Nucleated Red Blood Cells % 0.0 Immature Granulocytes # 0.120 H Neutrophils # 6.7 Lymphocytes # 3.7 H Monocytes # 0.8 Eosinophils # 0.3 Basophils # 0.1 Nucleated Red Blood Cells # 0.0 Sodium Level 139 Potassium Level 4.2 Chloride Level 108 Carbon Dioxide Level 23 Anion Gap 8 Blood Urea Nitrogen 9 Creatinine 0.47 Est Glomerular Filtrat > 60 Rate mL/min Glucose Level 91 Calcium Level 9.3 Total Bilirubin 0.2 Direct Bilirubin 0.00 Indirect Bilirubin 0.2 Aspartate Amino 25 Transf (AST/SGOT) Alanine 19 Aminotransferase (ALT/SGPT) Alkaline Phosphatase 94 Troponin I < 0.012 < 0.012 B-Type Natriuretic Peptide 351 H Total Protein 6.5 Albumin 3.1 L Globulin 3.40 H Albumin/Globulin Ratio 0.91 Lipase 225 Urine Color YELLOW Urine Clarity SLIGHTLY CLOUDY A Urine pH 7.0 Urine Specific [place] 1.004 Urine Ketones NEGATIVE Urine Nitrite NEGATIVE Urine Bilirubin NEGATIVE Urine Urobilinogen NEGATIVE Urine Leukocyte Esterase 2+ H Urine Microscopic RBC 42 H Urine Microscopic WBC 18 H Urine Squamous FEW Epithelial Cells Urine Bacteria FEW A Urine Hemoglobin 3+ H Urine Glucose NEGATIVE Urine Total Protein NEGATIVE Creatine Kinase 30 Creatine Kinase Index 0.7 Creatinine Kinase MB (Mass) < 0.22 Medications Medication Current Medications IV Flush (NS 3 ml) 3 ml PER PROTOCOL IV ; Start 06/19/18 at 05:00 Ondansetron HCl (Zofran Inj) 4 mg Q6H PRN IV NAUSEA/VOMITING; Start 06/19/18 at 05:00 Acetaminophen (Tylenol Tab) 650 mg Q6H PRN PO .PAIN 1-3 OR TEMP; Start 06/19/18 at 05:00 Heparin Sodium (Porcine) (Heparin (5000 Units/1ml)) 5,000 unit Q12 SC Last administered on 06/19/18 08:45; Admin Dose 5,000 UNIT; Start 06/19/18 at 09:00 Albuterol/ Ipratropium (Duoneb) 3 ml Q2H RESP THERAPY PRN HHN SHORTNESS OF BREATH; Start 06/19/18 at 05:00 Furosemide (Lasix) 20 mg DAILY IV Last administered on 06/19/18at 08:41; Admin Dose 20 MG; Start 06/19/18 at 09:00 Ceftriaxone Sodium 50 ml @ 100 mls/hr DAILY IVPB Last administered on 06/19/18 09:43; Admin Dose 100 MLS/HR; Start 06/19/18 at 09:00 Lisinopril (Zestril) 10 mg DAILY PO Last administered on 06/19/18 08:43; Admin Dose 10 MG; Start 06/19/18 at 09:00 JOSE ALBERTO HILL Jun 19, 2018 11:47
[2018-06-19] MEDS: FUROSEMIDE 40 MG INJ IV SCH (17:37)
[2018-06-19] MEDS ORDERED: HYDROCODONE/APAP (10/325) TAB PO ONE (23:00)
[2018-06-20] VITALS (9 sets, daily range): BP systolic 101–121; BP diastolic 58–81; PULSE 70–91; RESP 18–20
[2018-06-20] MEDS: FUROSEMIDE 40 MG INJ IV SCH ×2 (06:15→17:37)
[2018-06-20] MEDS: LISINOPRIL 10 MG TAB PO SCH (08:25)
[2018-06-20] MEDS: CEFTRIAXONE 1 GM/50 ML (PMX) 50 ML IVPB SCH (08:25)
[2018-06-20] MEDS: HEPARIN 5,000 UNIT/1 ML VIAL SC SCH (08:31)
--- NOTE | 2018-06-20 17:54 | RADRPT ---
Echocardiogram Report Patient Name: Malissa SPICER ID: [id number] : 1980 (37y 11m)Study Date: 06/19/2018 2:27:37 PM Gender: FAccession #: [id number] Tech: [facility] Location: Ref.Physician: LEONIDES RASHID Height(Cm): BSA: Weight(Kg): 120.7 Quality: GoodAccount #: Procedures: Echocardiographic Report: Transthoracic echocardiogram with 2D, M-Mode, and Doppler examination, poor subcostals. Indications: Congestive Heart Failure, 3 days post-. Measurements: 2D/M Mode Doppler Measurement Value Normal Range Measurement Value Normal Range LVIDd 2D 4.1 [ 3.8 - 5.2 ] cm AV Peak [place] 1.6 [ 100.0 - 170.0 ] cm/se c LVIDs 2D 2.8 [ 2.2 - 3.5 ] cm AV Peak PG 10.0 [ 2.0 - 9.0 ] mmHg LVPWd 2D 0.9 [ 0.6 - 0.9 ] cm LVOT Peak [place] 0.7 [ 70.0 - 110.0 ] cm/sec IVSd 2D 1.0 [ 0.6 - 0.9 ] cm LVOT Peak PG 2.0 [ 2.0 - 6.0 ] mmHg AoR Diam 2D 2.9 [ 2.3 - 3.1 ] cm MV E Peak [place] 0.8 [ 60.0 - 130.0 ] cm/sec EDV 2D 75.5 [ 46.0 - 106.0 ] ml MV A Peak [place] 0.5 [ 100.0 - 120.0 ] cm/se c ESV 2D 30.9 [ 14.0 - 42.0 ] ml MV E/A 1.4 [ 0.8 - 1.5 ] ratio EF 2D 59.1 [ 54.0 - 74.0 ] percent MV PHT 67.0 [ 20.0 - 100.0 ] msec LA Dimen 2D 3.7 [ 2.7 - 3.8 ] cm MV Decel Time 230 [ 104 - 258 ] msec MV Decel [place] 3 Lat E` Wilfrid 0.1 [ 10.0 - 15.0 ] cm/sec Lateral E/E` 6.2 [ 1.0 - 2.0 ] ratio Med E` Wilfrid 0.1 cm/sec MV E/A 1.4 [ 0.8 - 1.5 ] ratio MVA PHT 3.3 [ 2.0 - 4.0 ] cm2 PV Peak Wilfrid 0.9 [ 40.0 - 80.0 ] cm/sec PV Peak PG 3.0 mmHg Findings: Left Ventricle: Normal left ventricular systolic function. Normal left ventricular cavity size. Normal left ventricular wall thickness. Ejection fraction is visually estimated at 65 %. Tissue Doppler/Mitral Doppler indices are within normal limits. E/E'= 6. Right Ventricle: Normal right ventricular size. Normal right ventricular systolic function. Left Atrium: The left atrium is normal in size. Right Atrium: The right atrium is normal in size. Atrial Septum: Not well visualized. Mitral Valve: Normal appearance of the mitral valve. No mitral valve regurgitation is seen. Aortic Valve: No significant aortic stenosis or insufficiency. Normal trileaflet aortic valve structure. Tricuspid Valve: Normal appearance and function of the tricuspid valve with trace physiologic regurgitation. Pulmonic Valve: Normal pulmonic valve appearance. No evidence of pulmonic regurgitation. Pericardium: Normal pericardium with no significant pericardial effusion. Aorta: Normal aortic root. IVC: The IVC is not well visualized. Pulmonary Artery: Normal pulmonary artery size. Conclusions: Normal left ventricular systolic function. Normal left ventricular cavity size. Normal left ventricular wall thickness. Ejection fraction is visually estimated at 65 %. Tissue Doppler/Mitral Doppler indices are within normal limits. E/E'= 6. Normal appearance of the mitral valve. No mitral valve regurgitation is seen. No significant aortic stenosis or insufficiency. Normal trileaflet aortic valve structure. Normal appearance and function of the tricuspid valve with trace physiologic regurgitation. Electronically Signed By: Deep Sharif 2018-06-20 17:53:29 PDT
[2018-06-20] MEDS ORDERED: FURO40TA4 PO (18:44)
--- NOTE | 2018-06-20 18:45 | PDOCDIS ---
Discharge Instructions CONDITION [id number] Patient Condition: [id number] Good HOME CARE INSTRUCTIONS: [id number] Diet Instructions: [id number] Reduced Calorie ACTIVITY: [id number] Activity Restrictions: [id number] No Restrictions FOLLOW UP/APPOINTMENTS Follow-up Plan FOLLOW UP WITH YOUR PRIMARY CARE PHYSICIAN IN 1-2 WEEKS JOSE ALBERTO HILL Jun 20, 2018 18:45
--- NOTE | 2018-06-20 18:48 | DS ---
Date/Time of Note Date/Time of Note DATE: 06/20/18 TIME: 18:45 Discharge Summary Admission/Discharge Info Admit Date/Time Jun 19, 2018 at 03:21 Discharge Date/Time June 20, 2018 Discharge Diagnosis 1. Anasarca secondary to fluid overload and recent -resolving 2D echo shows a preserved EF and no abnormalities Renal function intact with UA showing no proteinuria Status post appropriate diuresis with Lasix 2. UTI Status post Rocephin IV 3. Recent gestation 4. Morbid obesity Lifestyle changes Patient Condition: Good Hospital Course Patient is a 37-year-old female with a history of morbid obesity and recent gestation, patient presents with shortness of breath and lower extremity swelling with general anasarca. Renal function was normal and UA showed no proteinuria, 2D echo showed preserved EF with no abnormalities. Etiology of anasarca likely secondary to recent gestation and volume overload, patient responded well to Lasix with resolution of anasarca. Patient did have a UTI and was given empiric Rocephin. Patient was stable for DC and was provided a prescription for a short course of Lasix. On day of discharge patient's vitals, labs of exam are stable. Home Meds Active Scripts Furosemide* (Furosemide*) 40 Mg Tablet, 40 MG PO DAILY, #14 TAB 1 Refill Prov:JOSE ALBERTO HILL 06/20/18 Meclizine Hcl* (Antivert*) 12.5 Mg Tab, 12.5 MG PO Q6H PRN for DIZZINESS, #20 TAB Prov:RENATA SHRESTHA 11/23/16 Discontinued Scripts Ibuprofen* (Motrin*) 600 Mg Tab, 600 MG PO Q6, #30 TAB Prov:RENATA SHRESTHA 11/23/16 Follow-up Plan FOLLOW UP WITH YOUR PRIMARY CARE PHYSICIAN IN 1-2 WEEKS Primary Care Provider [facility] Time spent on discharge: > 30 minutes JOSE ALBERTO HILL Jun 20, 2018 18:48
[2018-06-20] MEDS ORDERED: MAGNESIUM OXIDE 400 MG TAB PO ONE (19:30)
== END 2018-06-20 20:58 | disposition home or self-care (01) | DRG 776 ==
LOC: E/R 02:13 → 6WM 03:21
PROVIDERS: ADMIT Internal Medicine; ATTEND Internal Medicine
DX: O90.89 Other complications of the puerperium, not elsewhere classified (principal); Z68.41 Body mass index [BMI] 40.0-44.9, adult; O86.20 Urinary tract infection following delivery, unspecified; O99.215 Obesity complicating the puerperium; E66.01 Morbid (severe) obesity due to excess calories; E87.70 Fluid overload, unspecified
CPT/HCPCS: 36415; 71045; 80053; 80061; 81001; 82550; 82553; 83036; 83690; 83735; 83880; 84443; 84484; 85025; 87086; 93005; 93306; 96374; J0696; J1644; J1940

== ENCOUNTER 2018-08-10 21:04 | Emergency (ER) | payer MEDICAID, OTHER ==
[~2018-08-10] VITALS: Ht 172.7 cm; Wt 111.7 kg
[~2018-08-10 21:04] MED LIST changes: +FURO40TA4 PO
[2018-08-10 21:08] VITALS: BP 156/74; PULSE 86; RESP 19; Ht 172.7 cm; Wt 111.7 kg
--- NOTE | 2018-08-10 21:10 | EN ---
Date/Time of Note Date/Time of Note DATE: 08/10/18 TIME: 21:09 ER Progress Note ED 3 medical screening examination-patient referred by primary doctor for 2-week history of right calf pain. Patient 1 month . Other extremity Doppler ordered. No evidence of shortness of breath, otherwise well-appearing. EARLE BRICEÑO MD August 10, 2018 21:10
[2018-08-10] MEDS ORDERED: IBUP-1542 PO (21:49)
--- NOTE | 2018-08-10 21:51 | ERD ---
ER Documentation Chief Complaint Chief Complaint REFFERED BY PCP FOR R/O BLOOD CLOT RIGHT LEG; RIGHT LEG PAIN [id number] HPI 38-year-old female presents with right calf pain for the last 3 weeks. She is referred by primary doctor for evaluation for DVT. She denies any shortness of breath, syncope hemoptysis. She is approximately 1 month . She denies fevers, restricted range of motion weakness. She points to the right calf laterally which radiates up to the right of the right knee. She denies any warmth or redness. ROS All systems reviewed and are negative except as per history of present illness. Medications Home Meds Active Scripts Ibuprofen* (Motrin*) 600 Mg Tab, 600 MG PO Q6, #20 TAB Prov:EARLE BRICEÑO MD 08/10/18 Furosemide* (Furosemide*) 40 Mg Tablet, 40 MG PO DAILY, #14 TAB 1 Refill Prov:JOSE ALBERTO HILL 06/20/18 Meclizine Hcl* (Antivert*) 12.5 Mg Tab, 12.5 MG PO Q6H PRN for DIZZINESS, #20 TAB Prov:RENATA SHRESTHA 11/23/16 Allergies Allergies: Coded Allergies: Latex, Natural Rubber (Verified Allergy, Unknown, 06/14/18) swelling Uncoded Allergies: shellfish (Allergy, Mild, 06/14/18) PMhx/Soc History of Surgery: Yes (Right ACL knee surgery ) Anesthesia Reaction: No Hx Neurological Disorder: No Hx Respiratory Disorders: Yes (sports asthma) Hx Cardiac Disorders: No Hx Psychiatric Problems: No Hx Miscellaneous Medical Probl: No Hx Alcohol Use: No Hx Substance Use: No Hx Tobacco Use: No FmHx Family History: No diabetes, No coronary disease, No other Physical Exam Vitals Vital Signs Date Temp Pulse Resp B/P (MAP) Pulse Ox O2 O2 Flow FiO2 Time Delivery Rate 08/10/18 98.4 86 19 156/74 99 21:08 (101) Physical Exam Const: No acute distress Head: Atraumatic Eyes: Normal Conjunctiva ENT: Normal External Ears, Nose and Mouth. Neck: Full range of motion. No meningismus. Resp: Clear to auscultation bilaterally Cardio: Regular rate and rhythm, no murmurs Abd: Soft, non tender, non distended. Normal bowel sounds Skin: No petechiae or rashes Back: No midline or flank tenderness Ext: No cyanosis, or edema. Mild right calf tenderness. No significant swel ling. No warmth, erythema. No restricted range of motion or weakness. Neur: Awake and alert Psych: Normal Mood and Affect Procedures/MDM Right lower extremity Doppler negative for DVT. Patient presents with signs and symptoms likely right calf strain or musculoskeletal pain. She has no signs of cellulitis, ischemia or deficits. Sciatica consideration as well. She will discharged home with recommendations for stretching, ibuprofen, primary care follow-up and return precautions. The patient was stable with no new complaints during the ER course. Clinically, there is no current evidence to suggest meningitis, sepsis, acute abdomen, pneumonia, stroke, acute coronary syndrome, pulmonary embolism, aortic dissection or any other emergent condition appearing to require further evaluation or hospitalization. Patient counseled regarding my diagnostic impression and care plan. Prior to discharge all questions answered. Pt agrees with treatment plan and understands strict return precaution s. Pt is instructed to follow up with primary care provider within 24-48 hours. Precautionary instructions provided including instructions to return to the ER if not improving or for any worsening or changing symptoms or concerns. Disclaimer: Inadvertent spelling and grammatical errors are likely due to EHR/dictation software use and do not reflect on the overall quality of patient care. Also, please note that the electronic time recorded on this note does not necessarily reflect the actual time of the patient encounter. Departure Diagnosis: Primary Impression: Pain of right leg Condition: Stable Patient Instructions: Muscle Strain, Extremity Referrals: [facility] (PCP) Additional Instructions: No blood clots seen on ultrasound. Recommend stretching, primary care follow- up. Recheck for fevers, shortness of breath, new worsening symptoms. EARLE BRICEÑO MD August 10, 2018 21:51
== END 2018-08-10 22:12 | disposition home or self-care (01) ==
LOC: FTE 21:04
DX: M79.604 Pain in right leg (principal); J45.909 Unspecified asthma, uncomplicated; Z91.040 Latex allergy status
CPT/HCPCS: 93971; Z7502

== ENCOUNTER 2018-09-16 20:11 | Emergency (ER) | payer OTHER ==
[~2018-09-16] VITALS: Ht 165.1 cm; Wt 117.4 kg
[~2018-09-16 20:11] MED LIST changes: +IBUP-1542 PO
[2018-09-16 20:44] VITALS: Ht 165.1 cm; Wt 117.4 kg
--- NOTE | 2018-09-16 21:10 | ERD ---
ER Documentation Chief Complaint Chief Complaint palpitations/chest pressure X 3 days, Hx cardiac myopathy HPI 38-year-old female presents to the ED complaining of a 3-day history of intermittent palpitations and vague, generalized sharp and pressure-like intermittent chest pains. Denies shortness of breath, nausea, vomiting or diaphoresis. No leg pain or swelling. No abdominal pain, nausea vomiting. No URI symptoms, cough or hemoptysis. No fevers or chills. Patient had anasarca that was initially presumed to be due to cardiomyopathy but echo revealed normal ejection fraction. ROS All systems reviewed and are negative except as per history of present illness. Medications Home Meds Discontinued Scripts Ibuprofen* (Motrin*) 600 Mg Tab, 600 MG PO Q6, #20 TAB Prov:EARLE BRICEÑO MD 08/10/18 Furosemide* (Furosemide*) 40 Mg Tablet, 40 MG PO DAILY, #14 TAB 1 Refill Prov:JOSE ALBERTO HILL 06/20/18 Meclizine Hcl* (Antivert*) 12.5 Mg Tab, 12.5 MG PO Q6H PRN for DIZZINESS, #20 TAB Prov:RENATA SHRESTHA 11/23/16 Allergies Allergies: Coded Allergies: Latex, Natural Rubber (Unverified Allergy, Unknown, 09/16/18) swelling Uncoded Allergies: shellfish (Allergy, Mild, 06/14/18) PMhx/Soc History of Surgery: Yes (Right ACL knee surgery ) Anesthesia Reaction: No Hx Neurological Disorder: No Hx Respiratory Disorders: Yes (sports asthma) Hx Cardiac Disorders: Yes Hx Psychiatric Problems: No Hx Miscellaneous Medical Probl: No Hx Alcohol Use: No Hx Substance Use: No Hx Tobacco Use: No Smoking Status: Never smoker FmHx No sudden cardiac or cancer Physical Exam Vitals Vital Signs Date Temp Pulse Resp B/P (MAP) Pulse Ox O2 O2 Flow FiO2 Time Delivery Rate 09/17/18 98.0 78 19 111/76 100 Room Air 00:47 (88) 09/16/18 73 17 114/82 100 Room Air 23:37 (93) 09/16/18 77 14 139/97 100 Room Air 22:12 (111) 09/16/18 98.3 80 18 133/77 98 20:44 (95) Physical Exam Const: No acute distress Head: Atraumatic Eyes: Normal Conjunctiva ENT: Normal External Ears, Nose and Mouth. Neck: Full range of motion. No meningismus. Resp: Clear to auscultation bilaterally Cardio: Regular rate and rhythm, no murmurs Abd: Soft, non tender, non distended. Normal bowel sounds Skin: No petechiae or rashes Back: No midline or flank tenderness Ext: No cyanosis, or edema Neur: Awake and alert Psych: Normal Mood and Affect Result Diagram: 09/16/18213809/16/182138 Results 24 hrs Laboratory Tests Test 09/16/18 21:39 White Blood Count 9.6 10^3/ul Red Blood Count 3.81 10^6/ul Hemoglobin 10.8 g/dl Hematocrit 33.2 % Mean Corpuscular Volume 87.1 fl Mean Corpuscular Hemoglobin 28.3 pg Mean Corpuscular Hemoglobin Concent 32.5 g/dl Red Cell Distribution Width 13.6 % Platelet Count 254 10^3/UL Mean Platelet Volume 10.1 fl Immature Granulocytes % 0.500 % Neutrophils % 56.9 % Lymphocytes % 33.8 % Monocytes % 7.2 % Eosinophils % 1.2 % Basophils % 0.4 % Nucleated Red Blood Cells % 0.0 /100WBC Immature Granulocytes # 0.050 10^3/ul Neutrophils # 5.5 10^3/ul Lymphocytes # 3.3 10^3/ul Monocytes # 0.7 10^3/ul Eosinophils # 0.1 10^3/ul Basophils # 0.0 10^3/ul Nucleated Red Blood Cells # 0.0 10^3/ul D-Dimer 379.07 ng/ml D-Dimer Comment Sodium Level 140 mmol/L Potassium Level 4.3 mmol/L Chloride Level 106 mmol/L Carbon Dioxide Level 27 mmol/L Anion Gap 7 Blood Urea Nitrogen 10 mg/dl Creatinine 0.72 mg/dl Est Glomerular Filtrat Rate mL/min > 60 mL/min Glucose Level 105 mg/dl Calcium Level 9.0 mg/dl Troponin I < 0.012 ng/ml Procedures/MDM DOCUMENTS REVIEWED: ED nurse, prior records EKG: Time: 21:52. Sinus rhythm. Ventricular rate 75. Normal AL and QRS. Occasional PVCs. No acute ST-T wave changes. My Interpretation IMAGING: ROCEDURE: XR Chest. CLINICAL INDICATION: Chest pain TECHNIQUE: Single frontal view of the chest was obtained COMPARISON: DR JOSEPH 06/19/2018 FINDINGS: Portable AP technique and lordotic position of the patient and hypoinflation of the lungs accentuates the size of the cardiac silhouette. There is appearance of minimal enlargement of cardiac silhouette again seen. The lungs are clear. There is no pleural effusion or pneumothorax. ECG leads project over the chest. IMPRESSION: Appearance of minimal enlargement of cardiac silhouette again seen. Please see above. RPTAT: HJES .Eleuterio Morgan MD, MD Date Time Electronically viewed and signed by .Eleuterio Morgan MD, MD on 09/16/2018 21:47 .S/ [employer] DECISION MAKIN-year-old female presents to the ED complaining of a 3-day history of intermittent palpitations and vague, generalized sharp and pressure-like intermittent chest pains. CBC reveals mild anemia. Chemistry negative for electrolyte abnormalities or renal insufficiency. D-dimer is not elevated. Low risk for pulmonary embolism CT pulmonary angiogram is not indicated. Troponin is negative. EKG reveals rare PVCs but no ischemia. Chest x-ray shows mild cardiomegaly unchanged from prior studies without infiltrate, effusion, signs of CHF or pneumonia. Exam and work up not consistent w/ ischemia, arrhythmia, PE or dissection. Patient's thoracic symptoms have stabilized while in the department and she is stable for outpatient follow up. Counseled patient regarding diagnostic workup, diagnosis and need for followup. Understands to return to ED if symptoms recur, worsen or any other concerns. Departure Diagnosis: Primary Impression: Palpitations Additional Impressions: Chest pain with low risk for cardiac etiology Anemia Anemia type: unspecified type Qualified Codes: D64.9 - Anemia, unspecified Condition: Stable (Improved) VANIA JUDGE MD Sep 16, 2018 21:10
[2018-09-17 00:47] VITALS: BP 111/76; PULSE 78; RESP 19
== END 2018-09-17 00:49 | disposition home or self-care (01) ==
LOC: E/R 20:11
DX: R00.2 Palpitations (principal); R07.89 Other chest pain; D64.9 Anemia, unspecified; R40.2142 Coma scale, eyes open, spontaneous, at arrival to emergency department; R40.2362 Coma scale, best motor response, obeys commands, at arrival to emergency department; R40.2252 Coma scale, best verbal response, oriented, at arrival to emergency department; J45.909 Unspecified asthma, uncomplicated
CPT/HCPCS: 71045; 80048; 84484; 85025; 85378; 93005; Z7502